=== PATIENT | male | born 1940 | race Two or more races ===

== ENCOUNTER 2022-07-09 14:48 | Emergency (ER) | payer OTHER ==
[~2022-07-09] VITALS: Ht 193 cm; Wt 81.2 kg
[2022-07-09] MEDS ORDERED: GLIPIZIDE XL5 MG (15:21)
[2022-07-09] MEDS ORDERED: ZOCOR40 MG PO (15:21)
[2022-07-09] MEDS ORDERED: VITAMIN B-122500 MCG (15:21)
[2022-07-09] MEDS ORDERED: PEPCID AC20 MG (15:22)
[2022-07-09] MEDS ORDERED: GABAPENTIN400 MG PO (15:22)
[2022-07-10] MEDS ORDERED: CALCITRIOL0.25 MCG PO (19:31)
[2022-07-10] MEDS ORDERED: INTESTINEX680 M1 PO (19:32)
== END 2022-07-09 17:43 | disposition home or self-care (01) ==
LOC: ER 14:48
DX: S42.255A Nondisplaced fracture of greater tuberosity of left humerus, initial encounter for closed fracture (principal); Z88.0 Allergy status to penicillin

== ENCOUNTER 2022-07-10 18:57 | Inpatient (IN) | payer OTHER ==
[~2022-07-10] VITALS: Ht 193 cm; Wt 81.6 kg
[~2022-07-10 18:57] MED LIST: GABAPENTIN400 MG PO; GLIPIZIDE XL5 MG; PEPCID AC20 MG; VITAMIN B-122500 MCG; ZOCOR40 MG PO
[2022-07-10] MEDS ORDERED: CALCITRIOL0.25 MCG PO (19:31)
[2022-07-10] MEDS ORDERED: INTESTINEX680 M1 PO (19:32)
[2022-07-13] MEDS ORDERED: CLOPIDOGREL BIS75 MG (08:18)
[2022-07-13] MEDS ORDERED: QUETIAPINE FUMA25 MG (08:18)
[2022-07-13] MEDS ORDERED: METOCLOPRAMIDE10 MG (08:18)
== END 2022-07-22 14:49 | disposition home or self-care (01) | DRG 690 ==
LOC: ER 18:57 → MEDI 07-11 13:32
PROVIDERS: ADMIT Specialist; ATTEND Specialist
PROC: BW24ZZZ Computerized Tomography (CT Scan) of Chest and Abdomen (ICD-10-PCS; principal; 2022-07-19)
PROC: BW21YZZ Computerized Tomography (CT Scan) of Abdomen and Pelvis using Other Contrast (ICD-10-PCS; 2022-07-20)
DX: N39.0 Urinary tract infection, site not specified (principal); S42.291A Other displaced fracture of upper end of right humerus, initial encounter for closed fracture; N17.9 Acute kidney failure, unspecified; E86.0 Dehydration; B96.1 Klebsiella pneumoniae [K. pneumoniae] as the cause of diseases classified elsewhere; K80.20 Calculus of gallbladder without cholecystitis without obstruction; N20.0 Calculus of kidney; E11.40 Type 2 diabetes mellitus with diabetic neuropathy, unspecified; Z79.4 Long term (current) use of insulin; I10 Essential (primary) hypertension; R41.82 Altered mental status, unspecified; D64.9 Anemia, unspecified; Z20.822 Contact with and (suspected) exposure to COVID-19; W19.XXXA Unspecified fall, initial encounter